=== PATIENT | female | born 1935 | race Caucasian/White ===

== ENCOUNTER → 2017-09-22 | Outpatient (CLI) | payer OTHER ==
[2017-09-22 12:26] LABS: BLOOD UREA NITROGEN 14 mg/dl (7-18); GLUCOSE 71 mg/dl (70-99)
[2017-09-22 12:27] LABS: ALBUMIN 3.8 gm/dl (3.4-5.0); CALCIUM 9.9 mg/dl (8.5-10.1); CARBON DIOXIDE 32 mmol/L (21-32); CREATININE 0.88 mg/dl (0.60-1.20); PHOSPHORUS 3.3 mg/dl (2.5-4.9); SODIUM 140 mmol/L (136-145)
== END | disposition home or self-care (01) ==
LOC: C.LAB1850 10:14
PROVIDERS: ATTEND Internal Medicine Endocrinology, Diabetes & Metabolism
DX: E83.39 Other disorders of phosphorus metabolism (principal)